=== PATIENT | female | born 1985 | race Caucasian/White ===

== ENCOUNTER 2017-07-08 11:37 | Emergency (ER) | payer SELFPAY ==
[2017-07-08 11:46] VITALS: BP 122/70; PULSE 90; TEMP 97.5; BMI 20.5
[2017-07-08] MEDS ORDERED: SODIUM CHLORIDE 1,000 ML IV STA (12:15)
--- NOTE | 2017-07-08 12:30 | PDOC ---
History of Present Illness - General Chief Complaint: Pain, Acute Stated Complaint: LT SIDE PAIN (KIDNEY) Time Seen by Provider: 07/08/17 12:03 History Source: Patient Exam Limitations: No Limitations - History of Present Illness Initial Comments: 07/08/17 12:31 The patient is a 32 year old female, with a significant past medical history of nonobstructing nephrolithiasis, who presents to the emergency department with left flank pain. Pain began 1 hour ago and is sharp, nonradiating, 07/01. Patient has not tried anything for the pain and patient states moving makes the pain worse. Patient endorses chills, nausea, 1 episode of nonbloody non bilious emesis. Patient denies fever, abdominal pain. Patient has not urinated since episode. Allergies: Benadryl Past surgical history: Multiple lithotripsy's and stent placement Social history: denies PMD -Dr. Layla Mcmahon Urologist- Dr. Childs Past History - Past Medical History Allergies/Adverse Reactions: Allergies Allergy/AdvReac Type Severity Reaction Status Date / Time diphenhydramine HCl Allergy Hives Verified 07/08/17 11:43 [From Benadryl] Home Medications: Ambulatory Orders NK [No Known Home Medication] 07/08/17 Anemia: No Asthma: No Cancer: No Cardiac Disorders: No CVA: No COPD: No CHF: No Dementia: No Diabetes: No GI Disorders: No Disorders: Yes (KIDNEY STONES) HTN: No Hypercholesterolemia: No Kidney Stones: Yes Liver Disease: No Psychiatric Problems: Yes (Depression) Seizures: No Thyroid Disease: No Other medical history: OVARIAN CYTS. - Surgical History Abdominal Surgery: Yes Appendectomy: No Cardiac Surgery: No Cholecystectomy: No Lung Surgery: No Neurologic Surgery: No Orthopedic Surgery: No - Reproductive History (#): 3 Para: 1 - Immunization History Immunization Up to Date: Yes - Suicide/Smoking/Psychosocial Hx Smoking Status: No Smoking History: Never smoked Have you smoked in the past 12 months: No Number of Cigarettes Smoked Daily: 0 Hx Alcohol Use: No Drug/Substance Use Hx: No Substance Use Type: None Review of Systems - Review of Systems Able to Perform ROS?: Yes Comments:: 07/08/17 12:31 GENERAL/CONSTITUTIONAL: No fever, +chills. No weakness. HEAD, EYES, EARS, NOSE AND THROAT: No change in vision. No ear pain or discharge. No sore throat. CARDIOVASCULAR: No chest pain or shortness of breath RESPIRATORY: No cough, wheezing, or hemoptysis. GASTROINTESTINAL: +nausea, +vomiting, No diarrhea or constipation. GENITOURINARY: No dysuria, frequency, or change in urination. No abdominal pain MUSCULOSKELETAL: No joint or muscle swelling or pain. No neck or back pain. + flank pain SKIN: No rash NEUROLOGIC: No headache, vertigo, loss of consciousness, or change in strength/ sensation. ENDOCRINE: No increased thirst. No abnormal weight change HEMATOLOGIC/LYMPHATIC: No anemia, easy bleeding, or history of blood clots. ALLERGIC/IMMUNOLOGIC: No hives or skin allergy. *Physical Exam - Vital Signs Last Vital Signs Temp Pulse Resp BP Pulse Ox 97.5 F L 90 18 122/70 100 07/08/17 11:42 07/08/17 11:42 07/08/17 11:42 07/08/17 11:42 07/08/17 11:42 - Physical Exam Comments: 07/08/17 12:31 GENERAL: Awake, alert, and fully oriented, in no acute distress. Patient uncomfortable on bed HEAD: No signs of trauma, normocephalic, atraumatic NECK: Normal ROM, supple, no lymphadenopathy, JVD, or masses LUNGS: No distress, speaks full sentences, clear to auscultation bilaterally HEART: Regular rate and rhythm, normal S1 and S2, no murmurs, rubs or gallops, peripheral pulses normal and equal bilaterally. ABDOMEN: Soft, nontender, normoactive bowel sounds. No guarding, no rebound. No masses. +CVA tenderness EXTREMITIES: Normal inspection, Normal range of motion, no edema. No clubbing or cyanosis. NEUROLOGICAL: Cranial nerves II through XII grossly intact. Normal speech, no focal sensorimotor deficits SKIN: Warm, Dry, normal turgor, no rashes or lesions noted. ED Treatment Course - LABORATORY CBC & Chemistry Diagram: 07/08/17 12:40 07/08/17 12:40 Medical Decision Making - Medical Decision Making 07/08/17 12:36 The patient is a 32 year old female, with a significant past medical history of nonobstructing nephrolithiasis, who presents to the emergency department with left flank pain. Differential: Nephrolithiasis/renal colic vs MSK pain Plan: CBC, CMP, UA, UCx, Upreg, toradol, IVF 07/08/17 15:49 CBC, CMP unremarkable UA- 2+blood Upreg-+ Beta HCG- 15 Patient given IV tylenol. Patient explained that she will need further evaluation of her . She was informed not to take motrin for pain and to take tylenol with understanding. Patient feels better and plans to follow up with her urologist, PCP, and bung remover *DC/Admit/Observation/Transfer Diagnosis at time of Disposition: Renal colic on left side - Discharge Dispostion Disposition: HOME Condition at time of disposition: Stable - Referrals Referrals: Layla Segovia MD [Primary Care Provider] - Caryn Gallegos MD [Staff Physician] - Dexter Childs MD [Staff Physician] - - Patient Instructions Printed Discharge Instructions: DI for Kidney Stones Additional Instructions: Follow up with your primary care provider, urologist, and Steam Finisher. You will need further ultrasounds to evaluate your . Take tylenol for pain. Do not take motrin. If you have worsening pain, cramping, vaginal bleeding, chest pain, or shortness of breath come back to the hospital immediately.
[2017-07-08 12:48] LABS: URINE APPEARANCE SLCLOUDY; URINE BILIRUBIN NEGATIVE (NEGATIVE); URINE BLOOD 2+ (NEGATIVE); URINE COLOR YELLOW; URINE GLUCOSE (UA) NEGATIVE (NEGATIVE); URINE KETONE TRACE (NEGATIVE); URINE NITRITE NEGATIVE (NEGATIVE); URINE PROTEIN NEGATIVE (NEGATIVE); URINE UROBILINOGEN NEGATIVE mg/dL (0.2-1.0)
[2017-07-08] MEDS: KETOROLAC TROMETHAMINE 30 MG/1 ML VIAL IVPUSH ONE ×2 (12:51→13:33)
[2017-07-08] MEDS ORDERED: ONDANSETRON 4 MG/2 ML VIAL IVPUSH ONE ×2 (12:52→13:01)
[2017-07-08 12:53] LABS: URINE BACTERIA RARE /hpf (NONE SEEN); URINE MUCUS FEW; URINE RBC 82 /hpf (0-3); URINE WBC 6 /hpf (3-5)
[2017-07-08 13:17] LABS: BASOPHIL 0.4 % (0-2.0); EOSINOPHIL 0.8 % (0-4.5); MCH 30.2 pg (25.7-33.7); MCHC 32.7 g/dl (32.0-36.0); MEAN CELL VOLUME 92.5 fl (80-96); MEAN PLT VOLUME 8.7 fl (7.5-11.1); NEUTROPHILS 74.6 % (42.8-82.8); PLATELET COUNT 241 K/MM3 (134-434); RDW 12.6 % (11.6-15.6); WHITE BLOOD COUNT 7.1 K/mm3 (4.0-10.0)
[2017-07-08] MEDS ORDERED: ONDANSETRON 4 MG/2 ML VIAL ONE (13:23)
[2017-07-08] MEDS ORDERED: ACETAMINOPHEN 1000 MG/100 ML VIAL (NON FORMULARY) IVPB ONE (13:40)
[2017-07-08 13:48] LABS: ALK PHOS 76 U/L (45-117); ANION GAP 7 (8-16); BILIRUBIN,TOTAL 0.7 mg/dL (0.2-1.0); CALCIUM 8.8 mg/dL (8.5-10.1); CO2 27 mmol/L (21-32); CREATININE 0.9 mg/dL (0.55-1.02); GLUCOSE,RANDOM 91 mg/dL (74-106); SGPT/ALT 20 U/L (12-78); TOT PROT 8.2 g/dl (6.4-8.2)
--- NOTE | 2017-07-08 13:57 | PDOC ---
Attending Attestation - Resident Resident Name: J Carlos Medrano - ED Attending Attestation I have performed the following: I have examined & evaluated the patient, The case was reviewed & discussed with the resident, I agree w/resident's findings & plan, Exceptions are as noted - HPI HPI: 07/08/17 13:55 32-year-old female with history of renal colic and ovarian cysts presents with acute onset of left flank pain that rapidly progressed from gradual to severe about an hour prior to arrival, had a sense of urinary urgency but no other cramping or vaginal bleeding or hematuria. Overall, felt like her prior kidney stones. Pain currently resolved. LMP about 3 weeks ago - Physicial Exam PE: 07/08/17 13:56 Vital signs normal. Urine positive (Not known to patient but they have been trying) NAD + mild L CVAT abd soft/nt/nd. no guarding/rebound. BS nl - Medical Decision Making 07/08/17 13:56 32-year-old female with acute left flank pain with some urinary urgency, presentation seems most consistent with renal colic. Incidentally found to have positive urine , will proceed with ruling out ectopic versus ovarian cyst plus or minus rupture/torsion. Rule out UTI. Labs, urinalysis Zofran for nausea Pelvic ultrasound and left renal ultrasound Reassess 07/08/17 15:37 sono shows renal stones but no hydronephrosis, EVUS shows no IUP but HCG 15, correlating with LMP and sono findings. R ovarian cyst v corpus luteal cyst but no pathology on the left. D/W patient, most likely had small stone that passed give flank pain similar to past renal colic and the microscopic hematuria. no MOVIE WRITER complains, no clear evidence of ectopic but will need serial ultrasounds and HCG levels with Dr. Gallegos. Understands strict return criteria and will f/u ALFONSO with MOVIE WRITER and .
[2017-07-08 14:29] LABS: SGOT/AST 28 U/L (15-37)
[2017-07-08 17:53] LABS: URINE LEUK ESTERASE Negative (NEGATIVE)
== END 2017-07-08 16:33 | disposition home or self-care (01) ==
LOC: JER 11:37
PROC: 3E0337Z Introduction of Electrolytic and Water Balance Substance into Peripheral Vein, Percutaneous Approach (ICD-10-PCS; principal; 2017-07-08)
PROC: 3E033GC Introduction of Other Therapeutic Substance into Peripheral Vein, Percutaneous Approach (ICD-10-PCS; 2017-07-08)
DX: Z09 Encounter for follow-up examination after completed treatment for conditions other than malignant neoplasm (principal); N20.0 Calculus of kidney; Z87.442 Personal history of urinary calculi; Z3A.01 Less than 8 weeks gestation of pregnancy
CPT/HCPCS: 36415; 76775-TC; 76817-TC; 76856-TC; 80053; 81003; 81015; 84702; 84703; 85025; 87086; 99282-25

== ENCOUNTER 2018-03-13 07:30 | Inpatient (IN) | payer OTHER ==
[2018-03-18] MEDS ORDERED: ELECTROLYTE-148 SOLN 500 ML IV ONE (06:50)
[2018-03-18] MEDS ORDERED: ELECTROLYTE-148 SOLN 1,000 ML IV SCH (07:20)
[2018-03-18 07:24] VITALS: BMI 29.5
[2018-03-18] MEDS ORDERED: CITRIC ACID/SODIUM CITRATE 30 ML UNIT-DOSE CUP PO ONE (07:30)
[2018-03-18] MEDS ORDERED: ONDANSETRON 4 MG/2 ML VIAL IVPUSH PRN (07:43)
[2018-03-18] MEDS ORDERED: morphine SULFATE/Preservative Free 0.5 MG/ML (1cc Syringe) EP ONE (07:43)
[2018-03-18] MEDS ORDERED: ceFAZolin SODIUM 1 GM VIAL ONE ×4 (07:51→23:39)
[2018-03-18] MEDS ORDERED: BUPIVACAINE 0.75% IN DEXTROSE/PF 2ML AMPULE NR ONE (07:56)
[2018-03-18] MEDS ORDERED: ePHEDrine SULFATE 50 MG/1 ML AMPULE ONE (08:10)
[2018-03-18] MEDS ORDERED: OXYTOCIN 10 UNITS/ML VIAL ONE (08:17)
[2018-03-18] MEDS ORDERED: OXYTOCIN 20 UNITS in 0.9% NS 40 UNIT/2,000 ML INFUS.BAG IV ONE (08:23)
[2018-03-18] MEDS ORDERED: IBUPROFEN 800 MG/8 ML IJ IVPB PRN (08:51)
[2018-03-18] MEDS ORDERED: WITCH HAZEL 50% (TUCKS) 40 PAD/JAR PAD TP PRN (08:51)
[2018-03-18] MEDS ORDERED: oxyCODONE HCL 5 MG TABLET PO PRN (08:51)
[2018-03-18] MEDS ORDERED: METHYLERGONOVINE MALEATE 0.2 MG/1 ML AMP IM PRN (08:51)
[2018-03-18] MEDS ORDERED: BENZOCAINE 20% 57 GM BOTTLE TP PRN (08:51)
[2018-03-18] MEDS ORDERED: BENZOCAINE 28 GM HEMORRHOIDAL OINTMENT PR PRN (08:51)
[2018-03-18] MEDS ORDERED: OXYTOCIN 20 UNITS in 0.9% NS 20 UNIT/1,000 ML INFUS.BAG IV SCH (09:00)
[2018-03-18] MEDS ORDERED: DEXTROSE 5%-LACTATED RINGERS 1,000 ML IV SCH (09:00)
--- NOTE | 2018-03-18 09:00 | HP ---
Past Medical History - Primary Care Physician PCP:: Elia Bustos - Admission Chief Complaint: 39 weeks, previous c/s , request of c/s and BTL History of Present Illness: 32 yo f g 3 [id number] edc by sono 39 weeks, with previous c/s requesting repeat c/s and BTL , aware BTL is permenant and ahs small failure risk and risk of ectopic History Source: Patient Limitations to Obtaining History: No Limitations - Past Medical History ...: 3 ...Para: 1 ...Term: 0 ...: 1 ...Spon : 1 ...Induced : 0 ...Multiple Gestation: 0 ...LMP: 06/17/17 ... Weeks Gestation by Dates: 39.1 ...EDC by Dates: 03/24/18 ...EDC by Sono: 03/24/18 - Past Surgical History Past Surgical History: Yes: , Cystectomy (s/p laparoscopic ovarian cystectomy) Hx Myomectomy: No Hx Transabdominal Cerclage: No - Smoking History Smoking history: Never smoked Have you smoked in the past 12 months: No Aproximately how many cigarettes per day: 0 - Alcohol/Substance Use Hx Alcohol Use: No - Social History Usual Living Arrangement: Yes: With Spouse History of Recent Travel: No Home Medications - Allergies Allergies/Adverse Reactions: Allergies Allergy/AdvReac Type Severity Reaction Status Date / Time diphenhydramine HCl Allergy Hives Verified 07/08/17 11:43 [From Benadryl] - Home Medications Home Medications: Ambulatory Orders Vitamins (Sjr) - 1 tab PO DAILY 03/18/18 Review of Systems - Review of Systems Constitutional: reports: No Symptoms Eyes: reports: No Symptoms HENT: reports: No Symptoms Neck: reports: No Symptoms Cardiovascular: reports: No Symptoms Respiratory: reports: No Symptoms Gastrointestinal: reports: No Symptoms Genitourinary: reports: No Symptoms Breasts: reports: No Symptoms Reported Musculoskeletal: reports: No Symptoms Integumentary: reports: No Symptoms Neurological: reports: No Symptoms Endocrine: reports: No Symptoms Hematology/Lymphatic: reports: No Symptoms Psychiatric: reports: No Symptoms Physical Exam - Maternity Vital Signs: Vital Signs Temperature 98.1 F 03/18/18 07:12 Pulse Rate 72 03/18/18 07:12 Respiratory Rate 20 03/18/18 07:12 Blood Pressure 94/59 03/18/18 07:12 O2 Sat by Pulse Oximetry (%) Constitutional: Yes: Well Nourished, No Distress, Calm Eyes: Yes: WNL, Conjunctiva Clear, EOM Intact HENT: Yes: WNL, Atraumatic, Normocephalic Neck: Yes: WNL, Supple, Trachea Midline Cardiovascular: Yes: WNL, Regular Rate and Rhythm Breast(s): Yes: WNL - Abdominal Exam/OB Fundal Height: 40 Number of Fetuses: Single Presentation: Vertex Contractions: Yes Regularity: Irregular Intensity: Unaware Monitor Mode: External Heart Rate Location: [facility] Category: I Accelerations: Uniform Decelerations: None - Vaginal Exam/OB Vaginal Bleediing: No Speculum Exam: No Dilatation (cm): closed Effacement (%): 0 Amniotic Membrane Status: Intact Presentation: Vertex/Position Station: -3 - Physical Exam Deep Tendon Reflex Grade: Normal +2 Hemorrhage Risk Assessment - Risk Factors Medium Risk Factors: Yes: Prior , uterine surgery,or multiple laparotomies Risk Score: 1 Risk Level: Medium Risk Problem List - Problems (1) with 39 completed weeks gestation Code(s): Z3A.39 - 39 WEEKS GESTATION OF (2) Previous section complicating Code(s): O34.219 - MATERNAL CARE FOR UNSP TYPE SCAR FROM PREVIOUS DEL (3) Admission for sterilization Code(s): Z30.2 - ENCOUNTER FOR STERILIZATION Assessment/Plan repeat c/s ,BTL, rba discused
--- NOTE | 2018-03-18 11:02 | OP ---
DATE OF OPERATION: 03/18/2018 PREOPERATIVE DIAGNOSES: , 39 weeks, previous section, requests a repeat section. POSTOPERATIVE DIAGNOSES: , 39 weeks, previous section, requests a repeat section. PROCEDURE: Repeat low-segment transverse section and bilateral tubal ligation. SURGEON: Kayli Bustos MD PROGRAM DIRECTOR GROUP WORK: JADYN Luque ANESTHESIA: Spinal. ANESTHESIOLOGIST: Tom Cárdenas MD ESTIMATED BLOOD LOSS: 500 mL. FINDINGS: A live baby girl, right occiput transverse position, 9, 9. OPERATION: Patient was taken to the operating room. Under adequate spinal anesthesia abdomen and perineum were prepped and draped. Pfannenstiel abdominal skin incision was made over previous incision. Abdominal wall was cut layer by layer until peritoneum was exposed and incised. Upon entering the abdominal cavity lower uterine segment was identified and uterovesical fold of peritoneum established . Bladder was pushed down. Then with the lower blade of the [place] retractor in the pelvis a low-transverse uterine incision was made. Incision extended laterally. Amniotic sac was entered. Clear fluid. Head delivered from right occiput transverse position. Nasopharynx was suctioned and live baby was delivered without any difficulty, 9, 9. Placenta was delivered manually. Uterine cavity was cleared of all remaining tissue. Uterine incision was closed in 2 layers, 1st layer with 0 Biosyn continuous suture, the 2nd layer with 0 Biosyn imbricating the 1st layer. Bladder flap was closed with 0 Vicryl continuous suture. Both tubes and ovaries were checked and normal. Then right tube was grasped with Татьяна clamp. Right tube was doubly tied with 2-0 plain. Portion of tube was removed and endosalpinx was cauterized. The same procedure repeated for opposite tube. Pelvic cavity several times irrigated and no active bleeding was seen. All the lap pad, sponge and instrument counts were correct. Then peritoneum was closed with 0 Biosyn continuous suture. Muscles were brought together with interrupted suture of 0 Biosyn. Fascia was closed with 0 Biosyn continuous suture, subcutaneous fat with interrupted suture of 0 Biosyn and the skin was closed with yusuf. Patient tolerated procedure well, left the OR in good condition. KAYLI BUSTOS M.D. [id number]
[2018-03-18] MEDS ORDERED: DEXTROSE 5%-WATER - 50 ML IVPB ONE ×3 (15:37→23:39)
[2018-03-18] MEDS: CEFAZOLIN 1 GM in DEXTROSE 5%-WATER - 50 ML IVPB SCH ×2 (15:43→23:42)
[2018-03-19 07:32] LABS: BASO % 0.2 % (0-2.0); EOS % 0.6 % (0-4.5); HEMOGLOBIN 11.4 GM/dL (10.7-15.3); LYMPH % 8.7 % (8-40); MCH 33.5 pg (25.7-33.7); MCHC 33.5 g/dl (32.0-36.0); MEAN PLT VOLUME 9.3 fl (7.5-11.1); MONO % 8.8 % (3.8-10.2); NEUT % 81.7 % (42.8-82.8); PLATELET COUNT 203 K/MM3 (134-434); WHITE BLOOD COUNT 15.3 K/mm3 (4.0-10.0)
--- NOTE | 2018-03-19 08:13 | PN ---
Progress Note (short form) - Note Progress Note: Anesthesia Post op Pt seen and examined S:Alert and awake comfortable mild itch O: Vital Signs Temperature 98.4 F 03/19/18 06:00 Pulse Rate 72 03/19/18 06:00 Respiratory Rate 18 03/19/18 07:00 Blood Pressure 102/61 03/19/18 06:00 O2 Sat by Pulse Oximetry (%) CBC, BMP 03/19/18 06:30 A/P Current Active Problems Admission for sterilization (Acute) with 39 completed weeks gestation (Acute) Previous section complicating (Acute) s/p c section Doing well post op Continue current care Gilberto Payne MD
[2018-03-19] MEDS ORDERED: BISACODYL 10 MG SUPP.RECT RC PRN (08:52)
[2018-03-19] MEDS: ENOXAPARIN NA (PORCINE) 40 MG/0.4 ML DISP.SYRIN SQ SCH (09:11)
[2018-03-19] MEDS: IBUPROFEN 600 MG TABLET (FP) PO PRN (14:45)
[2018-03-19] MEDS: SIMETHICONE 80 MG TAB.CHEW (FP) PO PRN (14:45)
[2018-03-19] MEDS: ACETAMINOPHEN 325 MG TABLET (FP) PO PRN (14:46)
[2018-03-19] MEDS ORDERED: DIPHTH,PERTUSS(ACELL),TET 0.5 ML DISP.SYRIN IM ONE (15:00)
[2018-03-20] MEDS: SIMETHICONE 80 MG TAB.CHEW (FP) PO PRN ×4 (02:02→20:15)
[2018-03-20] MEDS: IBUPROFEN 600 MG TABLET (FP) PO PRN ×4 (02:02→20:16)
[2018-03-20] MEDS: ACETAMINOPHEN 325 MG TABLET (FP) PO PRN ×3 (02:03→15:35)
--- NOTE | 2018-03-20 07:35 | PN ---
Progress Note (short form) - Note Progress Note: pod 2 , has mild low abdominal cramps, no excess vaginal bleeding CBC, BMP 03/19/18 06:30 Last Vital Signs Temp Pulse Resp BP Pulse Ox 98.6 F 85 18 90/60 03/19/18 21:40 03/19/18 21:40 03/19/18 21:40 03/19/18 21:40 abdomen soft, no distension, no cva incision dry, clean no calf tenderness pod 2 afebrile , plan ambulate, cbc in am pain management Problem List - Problems (1) with 39 completed weeks gestation Code(s): Z3A.39 - 39 WEEKS GESTATION OF (2) Previous section complicating Code(s): O34.219 - MATERNAL CARE FOR UNSP TYPE SCAR FROM PREVIOUS DEL (3) Admission for sterilization Code(s): Z30.2 - ENCOUNTER FOR STERILIZATION
[2018-03-20] MEDS: ENOXAPARIN NA (PORCINE) 40 MG/0.4 ML DISP.SYRIN SQ SCH (09:10)
[2018-03-20] MEDS: SENNOSIDES/DOCUSATE COMBO (SENNA PLUS) TABLET (UD) PO PRN (20:15)
[2018-03-20] MEDS: oxyCODONE HCL 5 MG TABLET PO PRN (20:16)
[2018-03-21] MEDS: oxyCODONE HCL 5 MG TABLET PO PRN ×3 (00:45→22:38)
[2018-03-21] MEDS: SIMETHICONE 80 MG TAB.CHEW (FP) PO PRN ×5 (00:45→22:37)
[2018-03-21] MEDS: IBUPROFEN 600 MG TABLET (FP) PO PRN ×5 (00:45→22:38)
--- NOTE | 2018-03-21 08:12 | PN ---
Post Progress Note - Subjective Subjective: 32 yo Para 2 status post repeat seen and evaluated. Doing well. Post Day: 3 Type of Delivery: Repeat C/S Vital Signs: Vital Signs Temperature 98.1 F 03/21/18 07:43 Pulse Rate 77 03/21/18 07:43 Respiratory Rate 18 03/21/18 07:43 Blood Pressure 97/55 03/21/18 07:43 O2 Sat by Pulse Oximetry (%) Breast Exam: Yes: Soft Uterus: Yes: Fundus below umbilicus Incision: Yes: Humberto intact Abdomen/GI: Yes: Abdomen soft, Tolerating PO Lochia: Yes: Rubra Lochia, amount: Small Extremities: Yes: Calves non-tender Activity: Ambulating - Labs Labs: CBC WBC 15.3 K/mm3 (4.0-10.0) H 03/19/18 06:30 RBC 3.40 M/mm3 (3.60-5.2) L 03/19/18 06:30 Hgb 11.4 GM/dL (10.7-15.3) 03/19/18 06:30 Hct 34.0 % (32.4-45.2) 03/19/18 06:30 MCV 100.0 fl (80-96) H 03/19/18 06:30 MCH 33.5 pg (25.7-33.7) 03/19/18 06:30 MCHC 33.5 g/dl (32.0-36.0) 03/19/18 06:30 RDW 14.0 % (11.6-15.6) 03/19/18 06:30 Plt Count 203 K/MM3 (134-434) 03/19/18 06:30 MPV 9.3 fl (7.5-11.1) 03/19/18 06:30 Absolute Neuts (auto) 12.5 # 03/19/18 06:30 Neutrophils % 81.7 % (42.8-82.8) D 03/19/18 06:30 Lymphocytes % 8.7 % (8-40) D 03/19/18 06:30 Monocytes % 8.8 % (3.8-10.2) 03/19/18 06:30 Eosinophils % 0.6 % (0-4.5) 03/19/18 06:30 Basophils % 0.2 % (0-2.0) 03/19/18 06:30 Nucleated RBC % 0 % (0-0) 03/19/18 06:30 Problem List - Problems (1) Status post repeat low transverse section Code(s): Z98.891 - HISTORY OF UTERINE SCAR FROM PREVIOUS SURGERY Assessment/Plan Status post repeat Stable Continue routine post op care
[2018-03-21 08:27] LABS: BASO % 0.2 % (0-2.0); EOS % 3.4 % (0-4.5); HEMATOCRIT 31.5 % (32.4-45.2); HEMOGLOBIN 10.6 GM/dL (10.7-15.3); LYMPH % 22.9 % (8-40); MCH 33.6 pg (25.7-33.7); MCHC 33.7 g/dl (32.0-36.0); MEAN CELL VOLUME 99.7 fl (80-96); MEAN PLT VOLUME 8.6 fl (7.5-11.1); MONO % 10.1 % (3.8-10.2); NEUT % 63.4 % (42.8-82.8); PLATELET COUNT 239 K/MM3 (134-434); RBC 3.16 M/mm3 (3.60-5.2); WHITE BLOOD COUNT 8.5 K/mm3 (4.0-10.0)
[2018-03-21] MEDS: ENOXAPARIN NA (PORCINE) 40 MG/0.4 ML DISP.SYRIN SQ SCH (09:04)
[2018-03-21] MEDS: ACETAMINOPHEN 325 MG TABLET (FP) PO PRN ×3 (09:05→22:37)
[2018-03-21] MEDS: SENNOSIDES/DOCUSATE COMBO (SENNA PLUS) TABLET (UD) PO PRN (18:59)
[2018-03-22 07:32] VITALS: BP 118/70; PULSE 63; TEMP 98.2
[2018-03-22] MEDS: IBUPROFEN 600 MG TABLET (FP) PO PRN (09:15)
[2018-03-22] MEDS: ACETAMINOPHEN 325 MG TABLET (FP) PO PRN (09:15)
[2018-03-22] MEDS: SIMETHICONE 80 MG TAB.CHEW (FP) PO PRN (09:16)
[2018-03-22] MEDS: ENOXAPARIN NA (PORCINE) 40 MG/0.4 ML DISP.SYRIN SQ SCH (09:16)
--- NOTE | 2018-03-22 11:54 | DS ---
Physical Exam-SENIOR NETWORK SYSTEMS ENGINEER Vital Signs: Vital Signs Temperature 98.2 F 03/22/18 07:26 Pulse Rate 63 03/22/18 07:26 Respiratory Rate 18 03/22/18 07:26 Blood Pressure 118/70 03/22/18 07:26 O2 Sat by Pulse Oximetry (%) Constitutional: Yes: Well Nourished Eyes: Yes: Conjunctiva Clear HENT: Yes: Atraumatic Neck: Yes: Supple Cardiovascular: Yes: Regular Rate and Rhythm Respiratory: Yes: Regular Gastrointestinal: Yes: Normal Bowel Sounds ...Rectal Exam: Yes: WNL Pelvis: Yes: WNL External Genitalia: Yes: Normal Vaginal Exam: Yes: Normal Cervix: Yes: Normal Wound/Incision: Yes: Well Approximated, Humberto Intact Neurological: Yes: Alert, Oriented ...Motor Strength: WNL Psychiatric: Yes: Alert, Oriented Labs: CBC, BMP 03/21/18 07:00 Delivery - Delivery Type of Anesthesia: Spinal Episiotomy/Laceration: None EBL (cc): 500 Delivery, Single - Stages of Labor Date of Delivery: 03/18/18 Time of Delivery: 08:19 Time Placenta Delivered: 08:21 - Condition of Infant Manager Of Construction/Agricultural Sales Representative Present: Yes Name: Fatimah Sanchez Gender: Female Weight: 7 lb 5 oz Position: Right, OT Total Hours ROM (Hrs/Mins): 2min. - 1 Minute Total Score: 9 5 Minutes Total Score: 9 - [place] Feeding Plan Initial Plan: Exclusive throughout hospitalization Discharge Summary Reason For Visit: SCHEDULED C/SECTION Procedures: Principal: Repeat Low Transverse Hospital Course: Routine post op care Condition: Good - Instructions Diet, Activity, Other Instructions: Regular diet No driving, no lifting x 4 weeks. F/U in clinic in one week. Referrals: [facility] (Felisha Tafoya) [Outside] Disposition: HOME - Home Medications Comprehensive Discharge Medication List: Ambulatory Orders Vitamins (Sjr) - 1 tab PO DAILY 03/18/18
--- NOTE | 2018-03-26 17:06 | PATH ---
Surgical Pathology Report Patient Name: JUAN FRANCISCO GARCIA [facility]. Rec. 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 Specimen(s) Received A: PLACENTA B: LEFT FALLOPIAN TUBE C: RIGHT FALLOPIAN TUBE Clinical History , 39 gestational weeks, repeat Final Diagnosis A. PLACENTA: THIRD TRIMESTER PLACENTA. TRIVASCULAR CORD. MEMBRANES WITH NO DIAGNOSTIC ABNORMALITIES. B. LEFT PORTION OF FALLOPIAN TUBE: COMPLETE CROSS SECTION OF THE FALLOPIAN TUBE IDENTIFIED. C. RIGHT PORTION OF FALLOPIAN TUBE: COMPLETE CROSS SECTION OF THE FALLOPIAN TUBE IDENTIFIED. Electronically Signed Mercedes White M.D. Gross Description A. The specimen is received fresh labeled placenta and is a 508 gram, 15.5 x 15.5 x 2.4 cm. placenta with attached membranes and umbilical cord. The attached membranes are polo, translucent with focal opacities and insert marginally. The umbilical cord measures 34 cm. in length and averages 1 cm. in diameter. The cord inserts eccentrically, 5 cm. to the nearest margin. No true knots or strictures are identified. Cut surface of the umbilical cord reveals 3 vessels. The surface is rhodes-blue with minimal fibrin deposition and appropriate caliber vessels. The maternal surface is red-brown with focal defects. Sectioning reveals red-brown, spongy parenchyma with mild calcifications. No lesions are identified. Rotary Engraver sections are submitted in three cassettes as follows: 1- membrane rolls and umbilical cord; 2-3- full thickness sections of placenta. B. Received in formalin labeled "left fallopian tube," is a 1.7 cm in length portion of fallopian tube. No fimbria are present. The outer surface is polo-eubanks and smooth. Sectioning reveals an unremarkable lumen. Rotary Engraver sections are submitted in one cassette. C. Received in formalin labeled "right fallopian tube," is a 1.8 cm in length portion of fallopian tube. No fimbria are present. The outer surface is polo-eubanks and smooth. Sectioning reveals an unremarkable lumen. Rotary Engraver sections are submitted in one cassette. DL/03/20/2018 [facility]03/20/2018
== END 2018-03-22 10:40 | disposition home or self-care (01) | DRG 540 ==
LOC: JLDR 03-18 06:30 → J3W 03-18 09:55
PROVIDERS: ADMIT Obstetrics & Gynecology; ATTEND Obstetrics & Gynecology
PROC: 10D00Z1 Extraction of Products of Conception, Low, Open Approach (ICD-10-PCS; principal; 2018-03-18)
PROC: 0U570ZZ Destruction of Bilateral Fallopian Tubes, Open Approach (ICD-10-PCS; 2018-03-18)
DX: O34.211 Maternal care for low transverse scar from previous cesarean delivery (principal); Z3A.39 39 weeks gestation of pregnancy; Z37.0 Single live birth
CPT/HCPCS: 36415; 85025; 88302-TC; 88307-TC; 90715

== ENCOUNTER 2022-06-17 23:21 | Emergency (ER) | payer OTHER ==
[2022-06-17 23:27] VITALS: BP 122/86; PULSE 96; RESP 17; TEMP 97.9; BMI 23.8
[2022-06-18] MEDS ORDERED: KETOROLAC TROMETHAMINE 30 MG/1 ML VIAL IVPUSH ONE (00:12)
[2022-06-18] MEDS ORDERED: SODIUM CHLORIDE 1,000 ML IV STA (00:12)
[2022-06-18] MEDS ORDERED: KETOROLAC TROMETHAMINE 30 MG/1 ML VIAL ONE (00:38)
[2022-06-18 01:21] LABS: BASO % 0.6 % (0-2.0); EOS % 1.9 % (0-4.5); HEMATOCRIT 34.5 % (32.4-45.2); HEMOGLOBIN 11.2 GM/dL (10.7-15.3); MCH 28.7 pg (25.7-33.7); MCHC 32.5 g/dl (32.0-36.0); MEAN CELL VOLUME 88.5 fl (80-96); MEAN PLT VOLUME 8.1 fl (7.5-11.1); MONO % 7.9 % (3.8-10.2); NEUT % 61.6 % (42.8-82.8); PLATELET COUNT 358 10^3/uL (134-434); RBC 3.89 M/mm3 (3.60-5.2); RDW 14.1 % (11.6-15.6)
[2022-06-18 01:36] LABS: ALBUMIN 3.8 g/dl (3.4-5.0); BLOOD UREA NITROGEN 7.8 mg/dL (7-18)
[2022-06-18 01:39] LABS: CREATININE 0.8 mg/dL (0.55-1.3)
[2022-06-18 01:41] LABS: BILIRUBIN,TOTAL 0.4 mg/dL (0.2-1); TOT PROT 7.8 g/dl (6.4-8.2)
[2022-06-18 02:48] LABS: EPI CELLS 3 /uL (0-25.1); HYALINE CASTS 1 /uL (0-3.1); PH,URINE 5.5 (5.0-8.0); URINE APPEARANCE CLEAR; URINE BACTERIA 74 /uL (0-1359); URINE BILIRUBIN NEGATIVE (NEGATIVE); URINE COLOR YELLOW; URINE GLUCOSE (UA) NEGATIVE (NEGATIVE); URINE KETONE NEGATIVE (NEGATIVE); URINE LEUK ESTERASE NEGATIVE (NEGATIVE); URINE NITRITE NEGATIVE (NEGATIVE); URINE PROTEIN NEGATIVE (NEGATIVE); URINE RBC 3 /uL (0-23.9); URINE UROBILINOGEN 0.2 mg/dL (0.2-1.0); URINE WBC 2 /uL (0-25.8)
[2022-06-18 02:59] LABS: HCG,QUALITATIVE URINE Negative
== END 2022-06-18 03:19 | disposition home or self-care (01) ==
LOC: JER 23:21
PROC: 3E0333Z Introduction of Anti-inflammatory into Peripheral Vein, Percutaneous Approach (ICD-10-PCS; principal; 2022-06-17)
DX: R10.32 Left lower quadrant pain (principal)
CPT/HCPCS: 36415; 74176-TC; 80053; 81003; 84703; 85025; 87086; 99284-25